=== PATIENT | female | born 1950 | race Caucasian/White ===

== ENCOUNTER 2019-07-05 08:00 | Outpatient (CLI) | payer MEDICARE, OTHER ==
[2014-01-06 01:39] VITALS: BMI 35.5
[~2019-07-05 08:00] MED LIST: ACCUNEB0.63 MG/3 INH; ADVAIR 500/501 DISK INH; DIOVAN160 MG PO; DOXYCYCLINE HY100 M2 PO; GLUCOPHAGE850 MG PO; K-DUR20 MEQ PO; LASIX20 MG PO; LEVOTHROID75 MCG; MIRALAX17 GM PO; MOTRIN800 MG PO; SINGULAIR10 MG PO; STERAPRED DS 1210 MG; SYNTHROID50 MCG PO; TUDORZA PRESS400 MCG IH; VANCOCIN HCL250 MG PO; ZITHROMAX TRI-500 MG PO; [UNRECOGNIZED DRUG - OTHER] OR
== END 2019-07-05 23:59 | disposition home or self-care (01) ==
LOC: D.MAMMO 08:00
PROVIDERS: ATTEND Clinical Nurse Specialist Adult Health
DX: Z12.31 Encounter for screening mammogram for malignant neoplasm of breast (principal)

== ENCOUNTER 2020-04-19 15:31 | Inpatient (IN) | payer MEDICARE, OTHER ==
[2020-04-19] VITALS (20 sets, daily range): BP systolic 66–139; BP diastolic 43–91; BMI 33.1
[~2020-04-19] VITALS: Ht 172.7 cm; Wt 94.7 kg
--- NOTE | 2020-04-19 16:07 | NUR ---
PT STATES SHE WAS TESTED FOR COVID 2 DAYS AGO, RESULTS TODAY WERE NEGATIVE
[2020-04-19 16:27] LABS: BASOPHILS 0.2 % (0-2); HEMATOCRIT 47.7 % (36.0-48.0); HEMOGLOBIN 14.2 g/dL (12-16); IMMATURE GRANULOCYTES 0.2 % (0-5); LYMPHOCYTES 10.7 % (15-50); MCHC 29.8 g/dL (31.0-37.0); MCV 94.1 fL (80.0-100.0); MONOCYTES 7.8 % (2-11); NEUTROPHILS 79.1 % (40-80); PLATELET COUNT 175 10x3/uL (130-400); RBC 5.07 10x6/uL (4.00-5.40); RDW 15.4 % (11.5-14.5); WBC 8.5 10x3/uL (4.8-10.8)
[2020-04-19 16:39] LABS: APTT 27.7 SECONDS (22.8-39.4); INR 1.1 (0.85-1.17); PROTIME 14.1 SECONDS (11.6-15.0)
[2020-04-19 16:40] LABS: D-DIMER-QUANTITATIVE 1.3 ug/mLFEU (0.20-0.54)
[2020-04-19 16:44] LABS: ANION GAP 7.1 mmol/L (8-16); CALCIUM 7.7 mg/dL (8.5-10.1); CARBON DIOXIDE 39.2 mmol/L (21.0-32.0); CREATININE - SERUM 1.5 mg/dL (0.6-1.3); POTASSIUM - SERUM 4.3 mmol/L (3.5-5.1)
[2020-04-19 16:57] LABS: ALBUMIN 2.7 g/dL (3.4-5.0); BILIRUBIN - TOTAL 0.6 mg/dL (0.2-1.3); PROTEIN - SERUM 5.7 g/dL (6.4-8.2); TROPONIN-I 0.016 ng/mL (0.000-0.060)
[2020-04-19 17:23] LABS: C-REACTIVE PROTEIN 11.2 mg/dL (0.0-0.9)
[2020-04-20] VITALS (82 sets, daily range): BP systolic 88–168; BP diastolic 55–96; BMI 33.1
[2020-04-20 05:19] LABS: BASOPHILS 0.1 % (0-2); EOSINOPHILS 0.1 % (0-7); HEMATOCRIT 49.9 % (36.0-48.0); IMMATURE GRANULOCYTES 0.3 % (0-5); LYMPHOCYTES 4.6 % (15-50); MCH 28.4 pg (26.0-34.0); MCHC 30.1 g/dL (31.0-37.0); MCV 94.3 fL (80.0-100.0); MEAN PLATELET VOLUME 10.2 fL (7.4-10.4); MONOCYTES 2.4 % (2-11); NEUTROPHILS 92.5 % (40-80); PLATELET COUNT 179 10x3/uL (130-400); RBC 5.29 10x6/uL (4.00-5.40); RDW 15.5 % (11.5-14.5); WBC 7.9 10x3/uL (4.8-10.8)
[2020-04-20 05:27] LABS: BILIRUBIN NEGATIVE (NEGATIVE); GLUCOSE NEGATIVE (NEGATIVE); KETONE NEGATIVE (NEGATIVE); NITRITE NEGATIVE (NEGATIVE); UROBILINOGEN NORMAL (NORMAL)
[2020-04-20 05:41] LABS: ANION GAP 3.4 mmol/L (8-16); CALCIUM 8.6 mg/dL (8.5-10.1); CARBON DIOXIDE 39.4 mmol/L (21.0-32.0); MAGNESIUM - SERUM 1.6 mg/dL (1.8-2.4); PHOSPHOROUS 5.3 mg/dL (2.5-4.9); POTASSIUM - SERUM 4.8 mmol/L (3.5-5.1)
--- NOTE | 2020-04-20 06:57 | NUR ---
1914-PATIENT ARRIVED VIA ER STRETCHER. O2 AT 7L VIA HIGH FLOW NC. A/O X 4. SOB. ADMISSION COMPLETED. CALL LIGHT WITHIN REACH. 2134-PAGED DR. SHOEMAKER OF [facility]. 2144- SPOKE WITH DR. SHOEMAKER. NEW ORDER FOR BIPAP. 2299-REASSESSMENT COMPLETED. NO CHANGES 0100- BIPAP CONT TO BE ON. VSS. 0300-REASSESSMENT, NO CHANGES 0500- BIPAP CONT. NO CHANGES. VSS
--- NOTE | 2020-04-20 15:30 | NUR ---
0700 REPORT RECIEVED AND CARE ASSUMED OF PATIENT.. SEE FLOW SHEET FOR SHIFT ASSESMENT FINDINGS.. PT IS ON BIPAP O2 AT THIS TIME.. 0800 MEDS GIVEN AND O2 CHANGED TO NASAL CANNULA HI FLOW.. DRINKING AND SWALLOWING WITHOUT PROBLEM..PT IS SPEAKING TO HER SON ON HER CELL PHONME.. 0830 BACK ON BIPAP 0930 APPEARS TO BE SLEEPING.. 1145 DR SHOEMAKER IN TO SEE PATIENT.. PUPDATE IS GIVEN.. 1200 BS IS 163 INSULIN COVER SIPS H2O GIVEN.. 1200 DR MURILLO IN TO SEE PATIENT.. 1300 GIFT SHOP MANAGER IN TO DO ECHO.. 1400 DOPPLER TECH CALLED AND STATED THEY WERE GOING TO HOLD THE DOPPLER UNTIL COVID NEGATINVE 1500 LAB HAS CALLED AND COVID IS NEGATIVE DOPPLER TECH CALLED AND MESSAGE LEFT..
--- NOTE | 2020-04-20 18:32 | NUR ---
0700 REPORT RECIEVED AND CARE ASSUMED OF PATIENT.. SEE FLOW SHEET FOR SHIFT ASSESMENT..BIPAP ON 0800 MEDS GIVEN AND PT PLACDED ON NC HI FLOW O2 0830 PLACD BACK ON BIPAP.. 1140 DR SHOEMAKER IN TO SEE PATIENT.. UPDATE GIVEN... 1200 BS [address] MURILLO IN TO SEE PATIENT.. 1330 ECHO DONE DOPPLER ON HOLD PER TECH UNTIL PUI NEGATIVE 1500 PUI NEGATIVE.. 1530 DOPPLER TECH CALLED MESSAGE LEFT THAT PUI NEGATIVE.. 1630 BS DONE .. PLACED ON HI FLOW CANNULA 1700 DIET SERVED FEEDING SELF..
[2020-04-21] VITALS (24 sets, daily range): BP systolic 107–140; BP diastolic 66–105
[2020-04-21 03:50] LABS: BASOPHILS 0 % (0-2); EOSINOPHILS 0.1 % (0-7); HEMATOCRIT 46.1 % (36.0-48.0); HEMOGLOBIN 13.6 g/dL (12-16); IMMATURE GRANULOCYTES 0.1 % (0-5); LYMPHOCYTES 5.2 % (15-50); MCH 27.9 pg (26.0-34.0); MCHC 29.5 g/dL (31.0-37.0); MCV 94.5 fL (80.0-100.0); MEAN PLATELET VOLUME 9.8 fL (7.4-10.4); MONOCYTES 5.8 % (2-11); NEUTROPHILS 88.8 % (40-80); PLATELET COUNT 203 10x3/uL (130-400); RBC 4.88 10x6/uL (4.00-5.40); RDW 15.4 % (11.5-14.5); WBC 8.9 10x3/uL (4.8-10.8)
[2020-04-21 04:00] LABS: CALC OSMOLALITY 284 mosm/kg (275-300); CALCIUM 8.9 mg/dL (8.5-10.1); CHLORIDE - SERUM 98 mmol/L (98-107); CREATININE - SERUM 0.8 mg/dL (0.6-1.3); GLUCOSE 194 mg/dL (74-106); MAGNESIUM - SERUM 1.5 mg/dL (1.8-2.4); POTASSIUM - SERUM 4.5 mmol/L (3.5-5.1); SODIUM 139 mmol/L (136-145); UREA NITROGEN 18 mg/dL (7-18); VANCOMYCIN - TROUGH 12.1 ug/mL (10.0-20.0); eGFR NON AFRICAN AMERICAN 75 mL/min (90-120)
[2020-04-21 04:06] LABS: PHOSPHOROUS 3.4 mg/dL (2.5-4.9)
[2020-04-21 04:07] LABS: CARBON DIOXIDE 41.7 mmol/L (21.0-32.0)
--- NOTE | 2020-04-21 06:08 | NUR ---
1900-ASSESSMENT COMPLETED. NC HIGH FLOW AT 7 L 2100-TOLERATED MEDS WITHOUT DIFFICULTY 2200-BIPAP PLACED ON. 2300-REASSMENT COMPLETED. NO CHANGES 0100-NO CHANGES. BIPAP STILL ON. 0300-REASSESSMENT COMPLETED. 0405- CRITICAL LAB OF [facility] 41.7 CALLED FROM LAB. IMPROVED FROM YESTERDAY. 0500-MAG BEING REPLACED.
--- NOTE | 2020-04-21 14:15 | NUR ---
0700 REPORT RECIEVED AND CARE ASSUMED OF PATIENT.. SEE FLOW SHEET FOR SHIFT ASSESMENT FINDINGS.. O2 VIA BIPAP 0800 BREAKFAST SERVED.. O2 CHANGED TO NASAL CANNULA 0900 BACK ON BIPAP O2 AFTER EATING BREAKFAST AND TAKING MEDS.. SAT DROPS SIGNIFICANTY 1100 DR SHOEMAKER IN TO SEE PATIENT.. UPDATE IS GIVEN.. 1145 DR MURILLO IN TO SEE PATIEN.. 1200 BACK ON NASAL CANNULA O2 , LUNCH SERVED AND MEDS GIVEN.. PT SITTING ON SIDE OF BED.. FEEDING SELF LUNCH 1245 BACK ON BIPAP O2 1400 APPEARS SLEEPING.. 1420 CONTINUES TO SLEEP
--- NOTE | 2020-04-21 18:50 | NUR ---
1829 PIV DISLODGED RIGHT FOREARM... RESITED AND FLUID RESUMED INTO UPPER RIGHT FOREARM X 1 ATTEMPT..PT TOLERATED WELL
--- NOTE | 2020-04-21 20:29 | NUR ---
ATTEMPTED TO CALL DARLENE, SON FOR UPDATE. DID NOT ANSWER. VOICEMAIL WAS BUSINESS ONE SO DID NOT LEAVE VOICEMAIL.
[2020-04-22] VITALS (19 sets, daily range): BP systolic 112–162; BP diastolic 60–106
[2020-04-22 05:36] LABS: BASOPHILS 0.1 % (0-2); EOSINOPHILS 0.1 % (0-7); HEMATOCRIT 45.9 % (36.0-48.0); HEMOGLOBIN 13.7 g/dL (12-16); IMMATURE GRANULOCYTES 0.2 % (0-5); LYMPHOCYTES 5.9 % (15-50); MCH 27.9 pg (26.0-34.0); MCHC 29.8 g/dL (31.0-37.0); MCV 93.5 fL (80.0-100.0); MONOCYTES 7.4 % (2-11); NEUTROPHILS 86.3 % (40-80); PLATELET COUNT 188 10x3/uL (130-400); RBC 4.91 10x6/uL (4.00-5.40); RDW 15.2 % (11.5-14.5); WBC 10.6 10x3/uL (4.8-10.8)
[2020-04-22 06:03] LABS: CALC OSMOLALITY 283 mosm/kg (275-300); CHLORIDE - SERUM 98 mmol/L (98-107); CREATININE - SERUM 0.7 mg/dL (0.6-1.3); GLUCOSE 180 mg/dL (74-106); MAGNESIUM - SERUM 1.6 mg/dL (1.8-2.4); PHOSPHOROUS 3.5 mg/dL (2.5-4.9); POTASSIUM - SERUM 4.4 mmol/L (3.5-5.1); SODIUM 138 mmol/L (136-145); UREA NITROGEN 21 mg/dL (7-18); eGFR NON AFRICAN AMERICAN 88 mL/min (90-120)
[2020-04-22 06:06] LABS: CARBON DIOXIDE 40.4 mmol/L (21.0-32.0)
--- NOTE | 2020-04-22 06:22 | NUR ---
1900-ASSESSMENT COMPLETED. BREATHING 90% ON 7L HIGH FLOW NC. DENIES ANY NEEDS 2100-VSS. WATCHING TV. 2200- BIPAP PLACED ON PT 2300- REASSESSMENT COMPLETED. NO CHANGES. 0100- EYES CLOSED. EASILY WAKES TO VOICE 0300-REASSESSMENT COMPLETED. 0500-WATCHING TV. WANTS BIPAP OFF. PULSE OX ON BIPAP IS 89-91%.
--- NOTE | 2020-04-22 07:20 | NUR ---
PT A&O X3, DENIES NEEDS, BED LOWEST POSITION, SITTING ON BEDSIDE, BREATHING SHALLOW, CALL LIGHTIN REACH, NO S/S OF DISTRESS NOTED
--- NOTE | 2020-04-22 10:00 | NUR ---
PT MOVED FROM 2314 TO 2303
--- NOTE | 2020-04-22 10:57 | NUR ---
Nutrition follow-up: Pt with BIPAP in place Diet: ADA with po intake 100% of dinner meal Labs reviewed Wt: 223# PO intake good at this time RDN following.
--- NOTE | 2020-04-22 11:20 | NUR ---
SITTING UP IN BED, RESPIRATORY PLACING PT BACK ON BIPAP
--- NOTE | 2020-04-22 11:49 | NUR ---
PT SITTING ON BEDSIDE EATING LUNCH, 14L NC HF ON THEN BIPAP BACK ON AFTER EATING
--- NOTE | 2020-04-22 13:47 | EC ---
PATIENT:SEE ARENAS DATE OF SERVICE: 04/19/20 SEX: F MEDICAL RECORD: [id number] DATE OF : 50 LOCATION:[facility] D.230 AGE OF PATIENT: 69 ADMISSION DATE: 04/19/20 REFERRING PHYSICIAN: INTERPRETING PHYSICIAN: SHYAM TALLEY MD ECHOCARDIOGRAM REPORT ECHO CHARGES 4 ECHO COMPLETE Date: 04/20/20 CLINICAL DIAGNOSIS: DYSPNEA/HYPOTENSION/EDEMA/ ELEVATED PRO-BNP ECHOCARDIOGRAPHIC MEASUREMENTS (adult normal given) AC root (d.<3.7cm) 3.3 cm LV Septum d (<1.2 cm> 1.7 cm Valve Excursion 2.0 cm LV Septum (systole) 2.2 cm Left Atria (s.<4.0cm> 4.0 cm LVPW d(<1.2cm) 1.3 cm RV (d.<2.3cm) 4.0 cm LVPW (sytole) 2.3 cm LV diastole(<5.6CM) 5.0 cm MV E-F(>70mm/sec) cm LV systole 2.7 cm LVOT Diameter 1.7 cm MV exc.(>10mm) cm Est.ejection fraction (50-75%) % DOPPLER: LVIT cm/sec A 113 cm/sec E 78.0 cm/sec LA cm/sec RVSP 45.4 mmHg LVOT 112 cm/sec AOP1/2T m/s Asc. Ao 188 cm/sec RVOT 79.0 cm/sec RA cm/sec PA 105 cm/sec AV Gradient Peak 14.1 mmHg AV Mean 7.7 mmHg AV Area 1.3 cm MV Gradient Peak 4.2 mmHg MV Mean 1.2 mmHg MV Area cm COMMENTS: [employer]obile [employer] Property Underwriter: 1 ERIC WANOE Hammer Setter: 3 Dr. Harper TAPE# PACS Pericardial Effusion Y DATE OF SERVICE: Adequate 2D, color flow imaging, spectral Doppler, and M-Mode. LVH is present. LV internal dimensions are normal. LV appears to be mildly globally hypo with LV function lower limits of normal to mildly reduced at 45% to 50%. Aortic valve is tricuspid. No evidence of stenosis by Doppler interrogation. Left atrium is normal 4.0 cm. Mitral valve shows no prolapse. Trace MR. Right-sided chambers are grossly normal. Mild TR. ECHOCARDIOGRAM REPORT [id number] SEE ARENAS TRANSINT:[id number] Voice Confirmation ID: [id number] DOCUMENT ID: [id number] SHYAM TALLEY MD at 1347 CC: [id number] DICTATION DATE: 04/21/20 1148 SENIOR SALES OPERATIONS MANAGER: 04/21/20 2146 ADM IN [facility] [address] [place] [address]
--- NOTE | 2020-04-22 16:00 | NUR ---
ASSUMED CARE FOR THIS PT. PT IS A&O SITTING UP IN BED WITH HER BIPAP ON. PT STATES SHE IS FEELING GOOD AND DENIES ANY CURRENT PAIN OR NEEDS AT THIS TIME. PARRA DRAINING TO GRAVITY OFF R.SIDE OF BED. CL IN REACH, BED IN LOWEST, SIDE RAILS X2. WILL CTM.
--- NOTE | 2020-04-22 18:49 | NUR ---
NO RESPIRATORY CULTURE OBTAINED NO SPECIMEN PROVIDED. PT SAT UP ON EDGE OF BED AND TOLERATED 100% OF HER DINNER. ASSISTED PT BACK INTO BED AND SHE IS RESTING QUIETLY WITH HIFLOW NC @14L. PT STATES SHE FEELS LIKE SHE IS BREATHING EASIER THAN EARLIER TODAY. PT DENIES ANY CURRENT PAIN OR NEEDS AT THIS TIME. CL IN REACH, BED IN LOWEST, SIDE RAILS X2. WILL CTM.
--- NOTE | 2020-04-22 19:20 | NUR ---
ASSESSMENT PER FLOW SHEET, VS CONTINUE, IV IN RIGHT FA INTACT WITH NO REDNESS OR EDEMA INFUSING VIA PUMP NS AT 100 ML/HR, VANCOMYCIN INFUSING IVPB PER MD ORDERS, SEE EMAR, PT REPORTS FLATUS, AND NO BM, PARRA CATH INTACT DRAINING DARK YELLOW URINE, PT ON 14L O2 VIA NC, PT REPORTS PRODUCTIVE COUGH, PT DENIES PAIN AT THIS TIME, REQUESTED AND SERVED FRESH H20, DINNER TRAY REMOVED
--- NOTE | 2020-04-22 20:24 | NUR ---
PT WATCHING TV, OBTAINED FSBS
--- NOTE | 2020-04-22 20:50 | NUR ---
PHARMACY NOTIFIED FOR INSULIN
--- NOTE | 2020-04-22 21:31 | NUR ---
PT ON BIPAP AT THIS TIME, REMOVED, PT PLACED BACK ON O2 VIA NC, ADM 2100 MEDS WITH APPLESAUCE, ADM INSULIN TO RIGHT ARM, SNACK PROVIDED, PT REQUESTS RESP TREATMENT, RESP NOTIFIED, INFORMED PT THAT HE WILL BE IN SOON HE IS FINISHED UP WITH ANOTHER PT, PT VERBALIZES UNDERSTANDING, PT DENIES FURTHER NEEDS OR PAIN
--- NOTE | 2020-04-22 22:22 | NUR ---
PT WATCHING TV, BIPAP ON, PT DENIES NEEDS OR PAIN AT THIS TIME, BED IN LOW POSITION, SIDE RAILS X 2, CALL LIGHT IN REACH
[2020-04-23] VITALS (25 sets, daily range): BP systolic 142–168; BP diastolic 81–119
--- NOTE | 2020-04-23 00:37 | NUR ---
PT RESTING WITH EYES CLOSED, AROUSES TO SOFT VERBAL STIMULATION, VS CONTINUE, OBTAINED TEMP AND FSBS, SEE FLOW SHEET, NEW BAG OF NS AND MERREM HUNG IVPB PER MD ORDERS, SEE EMAR, PARRA CARE DONE, PT DENIES NEEDS OR PAIN AT THIS TIME
--- NOTE | 2020-04-23 01:49 | NUR ---
PT SITTING UP ON SIDE OF BED, BIPAP OFF AT THIS TIME, PT BACK ON NC, BP CUFF SLID DOWN ARM, READJUSTED, PT REQUESTED AND SERVED FRESH H20 AND SHARITA CRACKERS, DENIES FURTHER NEEDS
--- NOTE | 2020-04-23 02:37 | NUR ---
PT DOING RESP TREATMENT, BP CUFF SLID DOWN AGAIN, READJUSTED AND OBTAINED BP, BP 156/90, PT STATES "THAT'S GOOD FOR ME, IT'S USUALLY HIGHER THAN THAT", PT DENIES NEEDS OR PAIN AT THIS TIME
--- NOTE | 2020-04-23 04:13 | NUR ---
PT RESTING WITH EYES CLOSED, AROUSES TO SOFT VERBAL STIMULATION, LAB IN ROOM FOR AM BLOOD DRAW, OBTAINED FSBS
--- NOTE | 2020-04-23 04:34 | NUR ---
ADM INSULIN PER MD ORDERS, SEE EMAR, I&O'S COLLECTED, TEMP OBTAINED, VD CONTINUE, PT DENIES NEEDS OR PAIN AT THIS TIME
[2020-04-23 05:24] LABS: BASOPHILS 0.1 % (0-2); EOSINOPHILS 0 % (0-7); HEMATOCRIT 46.8 % (36.0-48.0); HEMOGLOBIN 13.9 g/dL (12-16); IMMATURE GRANULOCYTES 0.2 % (0-5); LYMPHOCYTES 6.6 % (15-50); MCH 27.5 pg (26.0-34.0); MCHC 29.7 g/dL (31.0-37.0); MCV 92.7 fL (80.0-100.0); MEAN PLATELET VOLUME 9.7 fL (7.4-10.4); MONOCYTES 10.1 % (2-11); PLATELET COUNT 195 10x3/uL (130-400); RBC 5.05 10x6/uL (4.00-5.40); RDW 15.1 % (11.5-14.5); WBC 10.5 10x3/uL (4.8-10.8)
[2020-04-23 05:40] LABS: CALC OSMOLALITY 280 mosm/kg (275-300); CALCIUM 8.8 mg/dL (8.5-10.1); CARBON DIOXIDE 38.8 mmol/L (21.0-32.0); CHLORIDE - SERUM 96 mmol/L (98-107); CREATININE - SERUM 0.8 mg/dL (0.6-1.3); GLUCOSE 194 mg/dL (74-106); MAGNESIUM - SERUM 1.6 mg/dL (1.8-2.4); PHOSPHOROUS 3.4 mg/dL (2.5-4.9); POTASSIUM - SERUM 4.2 mmol/L (3.5-5.1); SODIUM 137 mmol/L (136-145); UREA NITROGEN 17 mg/dL (7-18); VANCOMYCIN - TROUGH 16.1 ug/mL (10.0-20.0); eGFR NON AFRICAN AMERICAN 75 mL/min (90-120)
--- NOTE | 2020-04-23 06:11 | NUR ---
ADM SOLUMEDROL SIVP AND HUNG VANCOMYCIN IVPB PER MD ORDERS, SEE EMAR, PT REQUESTS TO TAKE MAGOX WITH BREAKFAST, PT REQUESTED AND PROVIDED WARM WASH CLOTH, DENIES FURTHER NEEDS
--- NOTE | 2020-04-23 09:00 | NUR ---
SITTING UP ON SIDE OF BED EATING BREAKFAST.
--- NOTE | 2020-04-23 11:00 | NUR ---
ON BIPAP VOICES NO CO AT TIME.
--- NOTE | 2020-04-23 15:00 | NUR ---
SLEEPING NO DISTRESS NOTED. O2 SAT 90 PERCENT ON 14 LITERS.
--- NOTE | 2020-04-23 17:30 | NUR ---
SITTING UP ON SIDE OF BED EATING SUPPER. VOICES NO CO AT TIME. O2 SAT 90 PERCENT.
--- NOTE | 2020-04-23 19:00 | NUR ---
BEDSIDE REPORT RECEIVED. SHIFT ASSESSMENT COMPLETED PER FLOWSHEET, SEE FLOWSHEET FOR INFORMATION. NO ACUTE NEEDS OR DISTRESS NOTED AT THIS TIME. VSS. WILL CONT TO MONITOR.
--- NOTE | 2020-04-23 21:00 | NUR ---
NO ACUTE NEEDS OR DISTRESS NOTED AT THIS TIME. WILL CONT TO MONITOR.
--- NOTE | 2020-04-23 22:04 | MORECARE ---
CASE MANAGEMENT DISCHARGE SUMMARY PATIENT: SEE ARENAS UNIT: [id number] ADM DATE: 04/19/20 AGE: 69 : 50 SEX: F ROOM/BED: D.2303 AUTHOR: JABIER PAYNE PHYSICIAN: REFERRING PHYSICIAN: QUINTIN WERNER MD DATE OF SERVICE: 04/23/20 Discharge Plan Patient Name: SEE ARENAS [facility] [facility] 1950 Planned Disposition: Anticipated Discharge Date: Discharge Date: Expected LOS: Initial Reviewer: [email or web address] Initial Review Date: 04/19/2020 Generated: 04/23/20 11:03 pm DCPIA - Discharge Planning Initial Assessment Updated by [email or web address]: Moni Martinez on 04/23/20 10:02 pm * Is the patient Alert and Oriented? Yes * How many steps to enter\exit or inside your home? * PCP Aditi * Pharmacy [facility] * Preadmission Environment Home Alone * ADLs Independent * Other Equipment HOME/PORTABLE 02, NEBULIZER, W/C, WALK IN SHOWER, ? WALKER, * List name and contact numbers for known caregivers / representatives who currently or will assist patient after discharge: BERNA ARENAS - SON - [phone] * Verbal permission to speak to the caregivers and representatives has been obtained from the patient. Yes * Community resources currently utilized None * Additional services required to return to the preadmission environment? No * Can the patient safely return to the preadmission environment? Yes * Has this patient been hospitalized within the prior 30 days at any hospital? No Patient Name: SEE ARENSA Page [id number] at 2204 All edits/amendments must be made on the electronic document DICTATION DATE: 04/23/202202 FERMENTATION OPERATOR: TONA 04/23/202202 RPT#: [id number] DC DATE: STATUS: ADM IN [facility] [address] [place] [address] END OF REPORT
--- NOTE | 2020-04-23 22:10 | MORECARE ---
CASE MANAGEMENT DISCHARGE SUMMARY PATIENT: SEE ARENAS UNIT: [id number] ADM DATE: 04/19/20 AGE: 69 : 50 SEX: F ROOM/BED: D.2303 AUTHOR: KERRY,DOC PHYSICIAN: REFERRING PHYSICIAN: QUINTIN WERNER MD DATE OF SERVICE: 04/23/20 Discharge Plan Patient Name: SEE ARENAS Facility: [facility]:[place] : 1950 Planned Disposition: Anticipated Discharge Date: Discharge Date: Expected LOS: Initial Reviewer: [email or web address] Initial Review Date: 04/19/2020 Generated: 04/23/20 11:10 pm DCP- Discharge Planning Updated by [email or web address]: Moni Martinez on 04/23/20 9:[address] Patient Name: SEE ARENAS Admission Status: ER Accout number: [id number] Admission Date: 04-19-2020 : 1950 Admission Diagnosis:SEPSIS, UNSPECIFIED ORGANISM Attending: QUINTIN WERNER Current LOS: 4 Anticipated DC Date: Planned Disposition: Primary Insurance: MEDICARE A & B Discharge Planning Comments: CM met with patient to complete initial dc planning assessment. CM educated patient on the CM role and verbal consent given by patient to complete assessment. Patient lives at home alone. Patient is independent. At discharge patient plans to return home and feels this is a safe discharge. CM discussed availability of home health, rehab services, and medical equipment. Patient stated that she may need BiPAP when discharged. Patient does currently have home/ portable 02 but doesn't know which provider. Patient will have family to transport home. CM will continue to follow and will assist as needed with dc plans/needs. Electrocardiograph Repairer: Moni Martinez DCPIA - Discharge Planning Initial Assessment Updated by [email or web address]: Moni Martinez on 04/23/20 10:02 pm * Is the patient Alert and Oriented? Yes * How many steps to enter\exit or inside your home? * PCP Aditi * Pharmacy [facility] * Preadmission Environment Home Alone * ADLs Independent * Other Equipment HOME/PORTABLE 02, NEBULIZER, W/C, WALK IN SHOWER, ? WALKER, * List name and contact numbers for known caregivers / representatives who currently or will assist patient after discharge: BERNA ARENAS - MARC - [phone] * Verbal permission to speak to the caregivers and representatives has been obtained from the patient. Yes * Community resources currently utilized None * Additional services required to return to the preadmission environment? No * Can the patient safely return to the preadmission environment? Yes * Has this patient been hospitalized within the prior 30 days at any hospital? No Last DP export: 04/23/20 9:04 pm Patient Name: SEE ARENAS Page [phone] at 2210 All edits/amendments must be made on the electronic document DICTATION DATE: 04/23/202209 PRINCIPAL CLERK: TONA 04/23/202209 RPT#: [id number] DC DATE: STATUS: ADM IN [facility] [address] [place] [address] END OF REPORT
--- NOTE | 2020-04-23 23:00 | NUR ---
REASSESSMENT COMPLETED PER FLOWSHEET, SEE FLOWSHEET FOR INFORMATION. PT RESTING IN BED WITH EYES CLOSED. BIPAP ON 70%. WILL CONT TO MONITOR.
[2020-04-24] VITALS (22 sets, daily range): BP systolic 131–174; BP diastolic 72–114
--- NOTE | 2020-04-24 01:00 | NUR ---
PT RESTING IN BED, ANSWERED CALL LIGHT. PT REQUEST TO TAKE BIPAP OFF FOR "A SPLIT SECOND SO I CAN GET A DRINK OF WATER" BIPAP TAKEN OFF TO GET A DRINK OF WATER PER REQUEST. PT SAT DROPPED DOWN TO 88%. SOON BIPAP WAS SECURED SAT INCREASED TO 90%. VSS. WILL CONT TO MONITOR.
--- NOTE | 2020-04-24 03:00 | NUR ---
REASSESSMENT COMPLETED PER FLOWSHEET, SEE FLOWSHEET FOR INFORMATION. PT RESTING IN BED WITH EYES CLOSED. NO ACUTE NEEDS OR DISTRESS NOTED AT THIS TIME. VSS. WILL CONT TO MONITOR.
--- NOTE | 2020-04-24 05:00 | NUR ---
CHG BEDBATH GIVEN. PT DENIES ANY ACUTE NEEDS OR DISTRESS AT THIS TIME. VSS. WILL CONT TO MONITOR.
[2020-04-24 06:41] LABS: BASOPHILS 0.1 % (0-2); EOSINOPHILS 0 % (0-7); HEMATOCRIT 47.3 % (36.0-48.0); HEMOGLOBIN 13.9 g/dL (12-16); IMMATURE GRANULOCYTES 0.3 % (0-5); LYMPHOCYTES 6.3 % (15-50); MCH 27.4 pg (26.0-34.0); MCHC 29.4 g/dL (31.0-37.0); MCV 93.1 fL (80.0-100.0); MEAN PLATELET VOLUME 9.8 fL (7.4-10.4); MONOCYTES 8.4 % (2-11); NEUTROPHILS 84.9 % (40-80); PLATELET COUNT 211 10x3/uL (130-400); RBC 5.08 10x6/uL (4.00-5.40); WBC 11.2 10x3/uL (4.8-10.8)
[2020-04-24 07:03] LABS: CALC OSMOLALITY 280 mosm/kg (275-300); CALCIUM 8.9 mg/dL (8.5-10.1); CARBON DIOXIDE 39.2 mmol/L (21.0-32.0); CHLORIDE - SERUM 98 mmol/L (98-107); CREATININE - SERUM 0.6 mg/dL (0.6-1.3); GLUCOSE 177 mg/dL (74-106); MAGNESIUM - SERUM 1.5 mg/dL (1.8-2.4); PHOSPHOROUS 3.4 mg/dL (2.5-4.9); POTASSIUM - SERUM 4.1 mmol/L (3.5-5.1); SODIUM 138 mmol/L (136-145); UREA NITROGEN 15 mg/dL (7-18); eGFR NON AFRICAN AMERICAN > 90 mL/min (90-120)
--- NOTE | 2020-04-24 08:00 | NUR ---
Nutrition follow-up: RDN visited with pt at breakfast 04/23; pt reports good appetite and ate 100% of breakfast meal. RDN helped pt fill out menus and honor pts food preferences within diet restrictions. Diet: ADA consistent CHO PO intake 75-100% of most meals BIPAP in use when not eating. Pt has had diabetes diet education in the past. Pt reports checking glucose at home. Will provide diabetic diet information. RDN following.
--- NOTE | 2020-04-24 19:00 | NUR ---
ASSESSEMENT COMPLETED. SEE FLOWSHEET FOR ALL FINDINGS. PT A/O X4, DENIES ANY DISCOMFORT AT THIS TIME. DESATURATION NOTED WHEN PT MOVES OR TALK. ENCOUREGED TO TAKE SBB. O2SAT 93% VIA AIRVO. HOB UP. SIDE RAILS UP X2. CALL LIGHT IN REACH. CONT TO MONITOR.
--- NOTE | 2020-04-24 21:00 | NUR ---
PT SCHEDULED MEDS GIVEN WITHOUT DIFFIC. PT CHAD WELL. REPOSITIONED SELF IN BED FOR COMFORT. HOB UP. SIDE RAILS UP. CALL LIGHT IN REACH. CPOC.
--- NOTE | 2020-04-24 23:00 | NUR ---
REASSESSMENT COMPELTED. SEE FLOWSHEETS FOR ALL FINDINGS. PT CHANGED TO BIPAP PER RT. NO ACUTE SIGNS OF DISTRESS NOTED. VSS. CPOC.
[2020-04-25] VITALS (22 sets, daily range): BP systolic 125–176; BP diastolic 55–101
--- NOTE | 2020-04-25 03:00 | NUR ---
REASSESSMENT COMPLETED PER FLOWSHEET. PT AWAKE AND REQUESTED TO TAKE THE BIPAP OFF FOR A BREAK. SWITCHED WITH VAPOTHERM FOR NEW. DESATURATION NOTED VERY EASILY. TAKES A AWALE TO RECOVER WITH ACTIVITY O2SAT AT 91%. CALL LIGHT IN REACH. CONT TO MONITOR.
[2020-04-25 03:50] LABS: BASOPHILS 0 % (0-2); EOSINOPHILS 0 % (0-7); HEMATOCRIT 49.1 % (36.0-48.0); HEMOGLOBIN 14.6 g/dL (12-16); IMMATURE GRANULOCYTES 0.5 % (0-5); LYMPHOCYTES 7.6 % (15-50); MCH 27.8 pg (26.0-34.0); MCHC 29.7 g/dL (31.0-37.0); MCV 93.5 fL (80.0-100.0); MEAN PLATELET VOLUME 9.9 fL (7.4-10.4); MONOCYTES 5.8 % (2-11); NEUTROPHILS 86.1 % (40-80); PLATELET COUNT 227 10x3/uL (130-400); RBC 5.25 10x6/uL (4.00-5.40); WBC 12.1 10x3/uL (4.8-10.8)
[2020-04-25 04:12] LABS: CALC OSMOLALITY 280 mosm/kg (275-300); CALCIUM 8.7 mg/dL (8.5-10.1); CHLORIDE - SERUM 96 mmol/L (98-107); CREATININE - SERUM 0.7 mg/dL (0.6-1.3); GLUCOSE 201 mg/dL (74-106); MAGNESIUM - SERUM 1.3 mg/dL (1.8-2.4); PHOSPHOROUS 3.5 mg/dL (2.5-4.9); POTASSIUM - SERUM 4.2 mmol/L (3.5-5.1); SODIUM 137 mmol/L (136-145); UREA NITROGEN 15 mg/dL (7-18); VANCOMYCIN - TROUGH 13.4 ug/mL (10.0-20.0); eGFR NON AFRICAN AMERICAN 88 mL/min (90-120)
--- NOTE | 2020-04-25 05:00 | NUR ---
I&O COMPLETED PER CHART
[2020-04-25 05:02] LABS: CARBON DIOXIDE 41.4 mmol/L (21.0-32.0)
--- NOTE | 2020-04-25 07:19 | NUR ---
SHIFT HAND OFF RECEIVED FROM SERVICE AIDE NURSE. PT AWAKE, DENIES ANY PAIN, ALERT AND ORIENTED. PERSONAL ITEMS WITHIN REACH. NO NEEDS AT THIS TIME.
--- NOTE | 2020-04-25 07:55 | NUR ---
RT @ BEDSIDE AND PLACED PT BACK ON BIPAP.
[2020-04-25 12:10] LABS: IMMUNOGLOBULIN E 50 IU/mL (6-495)
--- NOTE | 2020-04-25 16:17 | NUR ---
PT IV LEAKING, DISCONNECTED IV FLUID TEMPORARILY
--- NOTE | 2020-04-25 19:00 | NUR ---
BEDSIDE REPORT REC'D. ASSSESSMENT COMPLETED. SEE FLOWSHEET FOR ALL FINDINGS. PT A/O X4, DENIES PAIN OR DISCOMFORT AT THIS TIME. CONT ON VAPOTHERM TO KEEP O2SAT >90%. PPP. CALL LIGHT IN REACH. CONT TO MONITOR.
--- NOTE | 2020-04-25 21:00 | NUR ---
SCHEDULED MEDS GIVEN PER ORDER. PT CHAD WELL. CPOC.
--- NOTE | 2020-04-25 23:00 | NUR ---
REASSESSMENT COMPLETED. SEE FLOWSHEET FOR ALL FINDINGS. VSS. NO ACUTE CHANGES NOTED IN PT'S STATUS. CPOC.
[2020-04-26] VITALS (15 sets, daily range): BP systolic 105–173; BP diastolic 54–114
--- NOTE | 2020-04-26 01:00 | NUR ---
PT RESTING QUIETLY ON BIPAP, NO SIGNS OF DISTRESS NOTED. NO NEEDS VOICES. CPOC.
[2020-04-26 09:23] LABS: BASOPHILS 0.1 % (0-2); EOSINOPHILS 0 % (0-7); HEMATOCRIT 49.5 % (36.0-48.0); HEMOGLOBIN 15.2 g/dL (12-16); IMMATURE GRANULOCYTES 0.4 % (0-5); LYMPHOCYTES 4.8 % (15-50); MCHC 30.7 g/dL (31.0-37.0); MEAN PLATELET VOLUME 9.4 fL (7.4-10.4); MONOCYTES 4.5 % (2-11); NEUTROPHILS 90.2 % (40-80); PLATELET COUNT 236 10x3/uL (130-400); RBC 5.42 10x6/uL (4.00-5.40); RDW 14.9 % (11.5-14.5); WBC 13.6 10x3/uL (4.8-10.8)
[2020-04-26 09:24] LABS: MCV 91.3 fL (80.0-100.0)
[2020-04-26 09:41] LABS: ALBUMIN 2.9 g/dL (3.4-5.0); ALKALINE PHOSPHATASE 62 U/L (30-120); ALT (SGPT) 31 U/L (10-68); BILIRUBIN - TOTAL 0.97 mg/dL (0.2-1.3); CALC OSMOLALITY 285 mosm/kg (275-300); CALCIUM 8.4 mg/dL (8.5-10.1); CARBON DIOXIDE 37.9 mmol/L (21.0-32.0); CHLORIDE - SERUM 97 mmol/L (98-107); CREATININE - SERUM 0.7 mg/dL (0.6-1.3); GLUCOSE 237 mg/dL (74-106); MAGNESIUM - SERUM 1.6 mg/dL (1.8-2.4); PHOSPHOROUS 3.3 mg/dL (2.5-4.9); POTASSIUM - SERUM 4.4 mmol/L (3.5-5.1); PROTEIN - SERUM 6.5 g/dL (6.4-8.2); SODIUM 138 mmol/L (136-145); UREA NITROGEN 17 mg/dL (7-18); eGFR NON AFRICAN AMERICAN 88 mL/min (90-120)
--- NOTE | 2020-04-26 10:33 | NUR ---
Nutrition follow-up: Pt remains on BIPAP Pt receiving a consistent CHO diet PO intake 100% of most meals Labs reviewed Wt: 221# PO intake remains good at this time RDN following.
[2020-04-27] VITALS (23 sets, daily range): BP systolic 90–164; BP diastolic 46–96
[2020-04-27 04:48] LABS: BASOPHILS 0.1 % (0-2); EOSINOPHILS 0 % (0-7); HEMATOCRIT 50.9 % (36.0-48.0); HEMOGLOBIN 15.7 g/dL (12-16); IMMATURE GRANULOCYTES 0.8 % (0-5); LYMPHOCYTES 4.6 % (15-50); MCH 28.1 pg (26.0-34.0); MCHC 30.8 g/dL (31.0-37.0); MCV 91.1 fL (80.0-100.0); MEAN PLATELET VOLUME 10.2 fL (7.4-10.4); MONOCYTES 4.7 % (2-11); NEUTROPHILS 89.8 % (40-80); PLATELET COUNT 247 10x3/uL (130-400); RBC 5.59 10x6/uL (4.00-5.40)
[2020-04-27 04:54] LABS: ALBUMIN 2.7 g/dL (3.4-5.0); ALKALINE PHOSPHATASE 65 U/L (30-120); ALT (SGPT) 26 U/L (10-68); BILIRUBIN - TOTAL 1.04 mg/dL (0.2-1.3); CALC OSMOLALITY 287 mosm/kg (275-300); CALCIUM 8.2 mg/dL (8.5-10.1); CARBON DIOXIDE 34.5 mmol/L (21.0-32.0); CHLORIDE - SERUM 101 mmol/L (98-107); CREATININE - SERUM 0.6 mg/dL (0.6-1.3); GLUCOSE 218 mg/dL (74-106); MAGNESIUM - SERUM 1.7 mg/dL (1.8-2.4); PHOSPHOROUS 3.9 mg/dL (2.5-4.9); POTASSIUM - SERUM 4.6 mmol/L (3.5-5.1); PROTEIN - SERUM 6.4 g/dL (6.4-8.2); SODIUM 139 mmol/L (136-145); UREA NITROGEN 21 mg/dL (7-18); VANCOMYCIN - TROUGH 18.3 ug/mL (10.0-20.0); eGFR NON AFRICAN AMERICAN > 90 mL/min (90-120)
--- NOTE | 2020-04-27 20:15 | NUR ---
Rec'd pt awake, alert for initial assessment from off-going nurse. Initial assessment completed and recorded per assessment flow sheet. On vapotherm @ 40% with O2 sat of 90. Will monitor.
[2020-04-28] VITALS (22 sets, daily range): BP systolic 99–182; BP diastolic 57–106
[2020-04-28 03:36] LABS: BASOPHILS 0.1 % (0-2); EOSINOPHILS 0.1 % (0-7); HEMATOCRIT 50.4 % (36.0-48.0); HEMOGLOBIN 15.5 g/dL (12-16); IMMATURE GRANULOCYTES 0.5 % (0-5); LYMPHOCYTES 6.9 % (15-50); MCH 27.8 pg (26.0-34.0); MCHC 30.8 g/dL (31.0-37.0); MCV 90.5 fL (80.0-100.0); MEAN PLATELET VOLUME 9.6 fL (7.4-10.4); MONOCYTES 7.6 % (2-11); NEUTROPHILS 84.8 % (40-80); PLATELET COUNT 270 10x3/uL (130-400); RBC 5.57 10x6/uL (4.00-5.40); RDW 14.9 % (11.5-14.5); WBC 14.4 10x3/uL (4.8-10.8)
[2020-04-28 03:43] LABS: CALC OSMOLALITY 287 mosm/kg (275-300); CALCIUM 8.3 mg/dL (8.5-10.1); CHLORIDE - SERUM 103 mmol/L (98-107); CREATININE - SERUM 0.7 mg/dL (0.6-1.3); GLUCOSE 215 mg/dL (74-106); POTASSIUM - SERUM 4.1 mmol/L (3.5-5.1); SODIUM 140 mmol/L (136-145); UREA NITROGEN 22 mg/dL (7-18); eGFR NON AFRICAN AMERICAN 88 mL/min (90-120)
--- NOTE | 2020-04-28 19:00 | NUR ---
REPORT RECEIVED, PT CARE ASSUMED. INTRODUCED SELF AND WROTE NAME ON BOARD. PT SITTING UP IN BED, WATCHING TV, AAOX4. REQUESTING ICE WATER AND WASHCLOTH, PROVIDED. PARRA CATH DRAINING PER BEDSIDE WITHOUT ISSUE, 1000 ML CLEAR YELLOW URINE EMPTIED. PT DENIES ANY OTHER NEEDS AT THIS TIME. BED IN LOWEST, SRX2, CALL LIGHT WITHIN REACH. WILL CTM.
--- NOTE | 2020-04-28 21:15 | NUR ---
FSBS 227, 8 UNITS INSULIN PER SLIDING SCALE ADMINISTERED SUBCUTANEOUSLY RIGHT ARM. SNACK OFFERED, ACCEPTED. ADMINISTERED PM MEDS, PER ORDER. REQUESTED WATER, PROVIDED. DENIES ANY OTHER NEEDS AT THIS TIME. BED IN LOWEST, SRX2, CALL LIGHT WITHIN REACH. WILL CTM.
[2020-04-29] VITALS (22 sets, daily range): BP systolic 125–182; BP diastolic 68–109
--- NOTE | 2020-04-29 06:46 | NUR ---
Nutrition follow-up: Diet: ADA consistent CHO PO intake 100% of most meals, snacks Labs reviewed; glucose remains high possibly due to steroids Wt: 222# PO intake continues to be good RDN following.
--- NOTE | 2020-04-29 07:15 | NUR ---
PT RESTING QUIETLY IN BED WITH EYES CLOSED. OPENS EYES UPON HEARING STAFF IN ROOM. BIPAP IN PLACE. PT VOICES THIRST, BIPAP PAUSED FOR MOMENT TO ALLOW HYDRATION. PT VOICES AGITATION TOWARDS BIPAP, VOICING WISHES FOR AM BLOOD GASES TO BE DRAWN SO THAT PT COULD EAT. INFORMED PT THAT STAFF WOULD ENQUIRE ABOUT BLOOD GASES. PT VOICES UNDERSTANDING. BIPAP RETURNED TO PT. PT REPORTS BACK PAIN 4/10 AT THIS TIME. IV TO RIGHT WRIST WITH NS @ 100ML/HR INFUSING VIA PUMP. SITE WITHOUT REDNESS OR EDEMA. F/C PATENT TO GRAVITY, DRAINING YELLOW URINE. SCD'S IN PLACE BILATERALLY. DENIES FURTHER NEEDS AT THIS TIME. CL WITHIN REACH. ENCOURAGED TO CALL WITH NEEDS. CONTINUE POC
--- NOTE | 2020-04-29 09:10 | NUR ---
PT PROVIDED HYDRATION AT THIS TIME. ASSISTED WITH TURNING TO LEFT SIDE DUE TO C/O OF BED BEING UNCOMFORTABLE. PT VOICES APPRECIATION OF ASSISTANCE. BIPAP REMAINS IN PLACE. O2 DECREASED FROM 92% TO 88% WHILE DRINKING WATER. PT DENIES FURTHER NEEDS AT THIS TIME. CL WITHIN REACH. ENCOURAGED TO CALL WITH NEEDS.
--- NOTE | 2020-04-29 11:36 | NUR ---
PT REQUESTING LUNCH. DISCUSSED CURRENT OXYGEN SATURATION AND DECREASING RATE WHEN O2 IS OFF PATIENT. STRESSED THE IMPORTANCE OF CONTINUOUS BIPAP AT THIS TIME TO KEEP O2 LEVEL TO WHERE MD WANTS THE LEVEL TO BE. PT VOICES FRUSTRATION, BUT VOICES UNDERSTANDING. PROVIDED HYDRATION AT THIS TIME. DENIES FURTHER NEEDS AT THIS TIME. CL WITHIN REACH.
--- NOTE | 2020-04-29 15:49 | NUR ---
FOAM MATTRESS PLACED TO PT BED AT THIS TIME. PT WAS ABLE TO MAINTAIN O2 SAT OF 92-94% WITH BIPAP IN PLACE.
--- NOTE | 2020-04-29 19:00 | NUR ---
SUPINE IN BED, BIPAP IN USE. A&O X 4, DENIES NEEDS GUADALUPE, CTM.
--- NOTE | 2020-04-29 20:52 | NUR ---
VAPOTHERM IN USE, SPO2 83-88%. ENCOURAGING DEEP BREATHING, SPO2 CAME UP TO 91%. CTM
--- NOTE | 2020-04-29 23:03 | NUR ---
BIPAP REMOVED BRIEFLY FOR SIP OF WATER. SPO2 MAINTAINED ABOUT 90%
[2020-04-30] VITALS (24 sets, daily range): BP systolic 118–166; BP diastolic 72–101
[2020-04-30 04:04] LABS: BASOPHILS 0 % (0-2); EOSINOPHILS 0 % (0-7); HEMATOCRIT 42.7 % (36.0-48.0); HEMOGLOBIN 13.1 g/dL (12-16); IMMATURE GRANULOCYTES 0.6 % (0-5); LYMPHOCYTES 5.4 % (15-50); MCH 27.2 pg (26.0-34.0); MCHC 30.7 g/dL (31.0-37.0); MCV 88.8 fL (80.0-100.0); MEAN PLATELET VOLUME 9.8 fL (7.4-10.4); MONOCYTES 8.3 % (2-11); NEUTROPHILS 85.7 % (40-80); PLATELET COUNT 303 10x3/uL (130-400); RBC 4.81 10x6/uL (4.00-5.40); RDW 14.7 % (11.5-14.5); WBC 17.8 10x3/uL (4.8-10.8)
[2020-04-30 04:17] LABS: CALC OSMOLALITY 285 mosm/kg (275-300); CALCIUM 7.9 mg/dL (8.5-10.1); CARBON DIOXIDE 34.5 mmol/L (21.0-32.0); CHLORIDE - SERUM 99 mmol/L (98-107); CREATININE - SERUM 0.8 mg/dL (0.6-1.3); MAGNESIUM - SERUM 1.5 mg/dL (1.8-2.4); PHOSPHOROUS 3.5 mg/dL (2.5-4.9); POTASSIUM - SERUM 3.9 mmol/L (3.5-5.1); SODIUM 136 mmol/L (136-145); UREA NITROGEN 22 mg/dL (7-18); eGFR NON AFRICAN AMERICAN 75 mL/min (90-120)
[2020-04-30 04:33] LABS: GLUCOSE 290 mg/dL (74-106)
--- NOTE | 2020-04-30 08:18 | NUR ---
BIPAP OFF AND VAPOTHERM INITIATED, SAT 88%, WILL CONTINUE TO MONITOR
--- NOTE | 2020-04-30 12:40 | NUR ---
BACK FROM RADIOLOGY, AAO, RECONNECTED TO ICU MONITORS, VSS, O2 SAT 91%, BIPAP AT 100%
--- NOTE | 2020-04-30 12:47 | NUR ---
PC FROM DR PARKER RE CT, NO PE FOUND, RT LOWER PERITONEAL AREA WITH POSSIBLE BLOOD, HE RECOMMENDS ABD/ PELVIS CT, DR SHOEMAKER ON UNIT, NOTIFIED, TEST ORDERED
--- NOTE | 2020-04-30 14:53 | NUR ---
TO RADIOLOGY VIA BED FOR ABD/PEVIS CT, AAO, BIPAP IN USE
--- NOTE | 2020-04-30 22:32 | NUR ---
GIVEN PATIENT CHG BATH WITH COMPLETE LINEN CHANGE. CHANGE MEPILEX ON BUTTOCK. TOOK OUT PIV TO RIGHT WRIST, TIP INTACT. NO BLEEDING. UNABLE TO FLUSH SALINE. TOOK BIPAP OFF FOR MEDS AND PATIENT ONLY LASTED APPROX 20 MINS BEFORE DESAT TO 80% WITH 100% VAPOTHERM. PUT BIPAP BACK ON.
[2020-05-01] VITALS (37 sets, daily range): BP systolic 59–150; BP diastolic 30–80
[2020-05-01 04:32] LABS: BASOPHILS 0.1 % (0-2); EOSINOPHILS 0.9 % (0-7); HEMATOCRIT 38.4 % (36.0-48.0); HEMOGLOBIN 11.8 g/dL (12-16); IMMATURE GRANULOCYTES 0.6 % (0-5); LYMPHOCYTES 12.5 % (15-50); MCH 27.2 pg (26.0-34.0); MCHC 30.7 g/dL (31.0-37.0); MCV 88.5 fL (80.0-100.0); MEAN PLATELET VOLUME 9.9 fL (7.4-10.4); MONOCYTES 9.6 % (2-11); NEUTROPHILS 76.3 % (40-80); PLATELET COUNT 320 10x3/uL (130-400); RBC 4.34 10x6/uL (4.00-5.40); RDW 14.8 % (11.5-14.5); WBC 18.8 10x3/uL (4.8-10.8)
[2020-05-01 04:47] LABS: CARBON DIOXIDE 38.3 mmol/L (21.0-32.0); CHLORIDE - SERUM 100 mmol/L (98-107); MAGNESIUM - SERUM 1.6 mg/dL (1.8-2.4); PHOSPHOROUS 3.6 mg/dL (2.5-4.9); POTASSIUM - SERUM 3.4 mmol/L (3.5-5.1); SODIUM 141 mmol/L (136-145); UREA NITROGEN 21 mg/dL (7-18)
[2020-05-01 05:03] LABS: CALC OSMOLALITY 285 mosm/kg (275-300); CREATININE - SERUM 0.5 mg/dL (0.6-1.3); GLUCOSE 128 mg/dL (74-106); eGFR NON AFRICAN AMERICAN > 90 mL/min (90-120)
--- NOTE | 2020-05-01 10:41 | NUR ---
Nutrition follow-up: Pt sitting in bed with NC in place Receiving a consistent CHO diet with po intake good. Labs: Glucose under good control at this time Labs reviewed Wt: 211# RDN following.
--- NOTE | 2020-05-01 11:00 | NUR ---
ABG'S DRAWN PER ORDER BY RT
--- NOTE | 2020-05-01 11:20 | NUR ---
PAGED DR SHOEMAKER RE: ABG RESULTS 11:25, PC BACKE FROM DR SHOEMAKER, DECISION MADE THAT PATIENT NEEDS TO BE INTUBATED
--- NOTE | 2020-05-01 11:30 | NUR ---
SPOKE WITH PATIENT RE: BEING INTUBATED, VERY TEARFUL, WANTS TO GO HOME BUT WILL CALL HER SON TO SEE WHAT HE THINKS SHE SHOULD DO 1140 PC TO SON BERNA, EDUCATED RE: OXYGEN NEED AT AND ABG READING, STATED THAT WE SHOULD GIVE HIS MOTHER A CHANCE TO GET BETTER AND THE PATIENT AGREES
--- NOTE | 2020-05-01 12:13 | NUR ---
DR SHOEMAKER CALLED GIVEN UPDATE. ORDER TO CALL ANESTHESIA TO INTUBATE AT THIS TIME. DANIEL AT BEDSIDE GIVEN UPDATE.
--- NOTE | 2020-05-01 12:20 | NUR ---
INTUBATED PER DR SHOEMAKER, BY JIGAR PRESCOTT, 7.5 EET, 22 CM LIP LINE, 100MG SUCC AND 50 FENTANYL GIVEN,BEFORE PRODECURE
--- NOTE | 2020-05-01 14:25 | NUR ---
20 GAUGE IV PLACED TO RIGHT FOREARM.
[2020-05-02] VITALS (25 sets, daily range): BP systolic 90–130; BP diastolic 25–60
[2020-05-02 05:24] LABS: HEMATOCRIT 38.1 % (36.0-48.0); HEMOGLOBIN 10.5 g/dL (12-16); MCH 24.2 pg (26.0-34.0); MCHC 27.6 g/dL (31.0-37.0); MCV 87.8 fL (80.0-100.0); MEAN PLATELET VOLUME 10.6 fL (7.4-10.4); PLATELET COUNT 339 10x3/uL (130-400); RBC 4.34 10x6/uL (4.00-5.40); WBC 27.6 10x3/uL (4.8-10.8)
[2020-05-02 05:26] LABS: CALCIUM 8.8 mg/dL (8.5-10.1); CARBON DIOXIDE 29.8 mmol/L (21.0-32.0); CHLORIDE - SERUM 96 mmol/L (98-107); MAGNESIUM - SERUM 1.8 mg/dL (1.8-2.4); SODIUM 135 mmol/L (136-145)
[2020-05-02 05:27] LABS: CALC OSMOLALITY 285 mosm/kg (275-300); CREATININE - SERUM 0.8 mg/dL (0.6-1.3); GLUCOSE 235 mg/dL (74-106); PHOSPHOROUS 4.9 mg/dL (2.5-4.9); POTASSIUM - SERUM 4.8 mmol/L (3.5-5.1); UREA NITROGEN 34 mg/dL (7-18); eGFR NON AFRICAN AMERICAN 75 mL/min (90-120)
[2020-05-02 07:57] LABS: LYMPHOCYTES 8 % (15-50); MONOCYTES 1 % (2-11); NEUTROPHILS 91 % (40-80); PLATELET ESTIMATE NORMAL
--- NOTE | 2020-05-02 11:18 | NUR ---
NUTRITION F/U PT NOW SEDATED ON VENT. PER MD CONSULT TUBE FEED ORDERS WRITTEN. WILL SPEAK WITH NURSING. CURRENT PULMOCARE GOAL RATE 45 CC/HR. RD FOLLOWING
[2020-05-03] VITALS (24 sets, daily range): BP systolic 94–129; BP diastolic 49–66
[2020-05-03 04:16] LABS: BASOPHILS 0 % (0-2); EOSINOPHILS 0 % (0-7); HEMATOCRIT 33.3 % (36.0-48.0); HEMOGLOBIN 10.2 g/dL (12-16); IMMATURE GRANULOCYTES 0.6 % (0-5); LYMPHOCYTES 2.5 % (15-50); MCH 27.2 pg (26.0-34.0); MCHC 30.6 g/dL (31.0-37.0); MCV 88.8 fL (80.0-100.0); MONOCYTES 4.1 % (2-11); NEUTROPHILS 92.8 % (40-80); PLATELET COUNT 289 10x3/uL (130-400); RBC 3.75 10x6/uL (4.00-5.40); RDW 15.2 % (11.5-14.5); WBC 24.8 10x3/uL (4.8-10.8)
[2020-05-03 04:22] LABS: CALC OSMOLALITY 297 mosm/kg (275-300); CALCIUM 8.3 mg/dL (8.5-10.1); CARBON DIOXIDE 33.5 mmol/L (21.0-32.0); CHLORIDE - SERUM 103 mmol/L (98-107); CREATININE - SERUM 0.7 mg/dL (0.6-1.3); GLUCOSE 237 mg/dL (74-106); MAGNESIUM - SERUM 1.8 mg/dL (1.8-2.4); SODIUM 142 mmol/L (136-145); UREA NITROGEN 33 mg/dL (7-18); eGFR NON AFRICAN AMERICAN 88 mL/min (90-120)
[2020-05-03 04:27] LABS: PHOSPHOROUS 3.1 mg/dL (2.5-4.9); POTASSIUM - SERUM 3.8 mmol/L (3.5-5.1)
--- NOTE | 2020-05-03 18:00 | MORECARE ---
CASE MANAGEMENT DISCHARGE SUMMARY PATIENT: SEE ARENAS UNIT: [id number] ADM DATE: 04/19/20 AGE: 69 : 50 SEX: F ROOM/BED: D.2303 AUTHOR: KERRYDOC PHYSICIAN: REFERRING PHYSICIAN: QUINTIN WERNER MD DATE OF SERVICE: 05/03/20 Discharge Plan Patient Name: SEE ARENAS Facility: [facility]:[place] : 1950 Planned Disposition: Anticipated Discharge Date: Discharge Date: Expected LOS: Initial Reviewer: [email or web address] Initial Review Date: 04/19/2020 Generated: 05/03/20 6:59 pm Comments DCP- Discharge Planning Updated by [email or web address]: Moni Martinez on 05/03/20 4:[address] CM notified that patient's will be coming in on Wednesday and will want to speak with CM regarding final arrangements / Hospice. CM will continue to follow and assist as needed with discharge planning/ needs. DCP- Discharge Planning Updated by [email or web address]: Moni Martinez on 04/23/20 9:[address] Patient Name: SEE ARENAS Admission Status: ER Accout number: [id number] Admission Date: 04-19-2020 : 1950 Admission Diagnosis:SEPSIS, UNSPECIFIED ORGANISM Attending: QUINTIN WERNER Current LOS: 4 Anticipated DC Date: Planned Disposition: Primary Insurance: MEDICARE A & B Discharge Planning Comments: CM met with patient to complete initial dc planning assessment. CM educated patient on the CM role and verbal consent given by patient to complete assessment. Patient lives at home alone. Patient is independent. At discharge patient plans to return home and feels this is a safe discharge. CM discussed availability of home health, rehab services, and medical equipment. Patient stated that she may need BiPAP when discharged. Patient does currently have home/ portable 02 but doesn't know which provider. Patient will have family to transport home. CM will continue to follow and will assist as needed with dc plans/needs. Prosthetics Assistant: Moni Martinez DCPIA - Discharge Planning Initial Assessment Updated by [email or web address]: Moni Martinez on 04/23/20 10:02 pm * Is the patient Alert and Oriented? Yes * How many steps to enter\exit or inside your home? * PCP Aditi * Pharmacy [facility] * Preadmission Environment Home Alone * ADLs Independent * Other Equipment HOME/PORTABLE 02, NEBULIZER, W/C, WALK IN SHOWER, ? WALKER, * List name and contact numbers for known caregivers / representatives who currently or will assist patient after discharge: BERNA ARENAS - MARC - [phone] * Verbal permission to speak to the caregivers and representatives has been obtained from the patient. Yes * Community resources currently utilized None * Additional services required to return to the preadmission environment? No * Can the patient safely return to the preadmission environment? Yes * Has this patient been hospitalized within the prior 30 days at any hospital? No Last DP export: 04/23/20 9:10 pm Patient Name: SEE ARENAS Page [id number] at 1800 All edits/amendments must be made on the electronic document DICTATION DATE: 05/03/201758 DISTILLER: TONA 05/03/201758 RPT#: [id number] DC DATE: STATUS: ADM IN [facility] [address] [place] [address] END OF REPORT
--- NOTE | 2020-05-03 19:20 | NUR ---
RECEIVED CARE OF PT, ASSESSMENT PER FLOWSHEET. PT INTUBATED AND SEDATED ON VENT, O2 SAT AT 77%-MD AWARE, 100% FIO2, PULMOCARE INFUSING AT 15CC/HR TO OGT, PLACEMENT VERIFIED WITH AUSC OF SM AIR BOLUS, HR SR, WILL MONITOR.
[2020-05-04] VITALS (48 sets, daily range): BP systolic 76–139; BP diastolic 43–73
[2020-05-04 04:38] LABS: HEMOGLOBIN 9.1 g/dL (12-16); MCH 27.5 pg (26.0-34.0); MCHC 30.3 g/dL (31.0-37.0); MCV 90.6 fL (80.0-100.0); PLATELET COUNT 277 10x3/uL (130-400); RBC 3.31 10x6/uL (4.00-5.40); RDW 15.4 % (11.5-14.5); WBC 22.7 10x3/uL (4.8-10.8)
[2020-05-04 04:55] LABS: CALCIUM 8.3 mg/dL (8.5-10.1); CARBON DIOXIDE 37.5 mmol/L (21.0-32.0); CHLORIDE - SERUM 107 mmol/L (98-107); CREATININE - SERUM 0.6 mg/dL (0.6-1.3); MAGNESIUM - SERUM 1.8 mg/dL (1.8-2.4); SODIUM 144 mmol/L (136-145); UREA NITROGEN 33 mg/dL (7-18); eGFR NON AFRICAN AMERICAN > 90 mL/min (90-120)
[2020-05-04 04:56] LABS: CALC OSMOLALITY 298 mosm/kg (275-300); GLUCOSE 183 mg/dL (74-106); PHOSPHOROUS 4.1 mg/dL (2.5-4.9); POTASSIUM - SERUM 4.4 mmol/L (3.5-5.1)
[2020-05-04 05:11] LABS: LYMPHOCYTES 3 % (15-50); MONOCYTES 8 % (2-11); NEUTROPHILS 89 % (40-80)
[2020-05-04 05:12] LABS: PLATELET ESTIMATE NORMAL
--- NOTE | 2020-05-04 09:41 | NUR ---
PT OXYGEN SATURATION 66% ON 100% FIO2. DR NAVID CLINTON, STATED TO OBTAIN ABG. ALSO ATTEMPTED TO NOTIFY PTS SON, REACHED VOICEMAIL, VOICEMAIL LEFT. WILL CONTINUE TO ATTEMPT TO CONTACT FAMILY.
--- NOTE | 2020-05-04 09:47 | NUR ---
ABG RESULTS CALLED TO DR SHOEMAKER, STATED INCREASE VENT RATE TO 24.
--- NOTE | 2020-05-04 10:36 | NUR ---
OGT RESIDUAL 10ML.
--- NOTE | 2020-05-04 11:17 | NUR ---
SPOKE WITH PTS SON WHO STATED HE WILL BE HERE AROUND [address] MCGEE ON PT. DR MCGEE AWARE OF THIS.
--- NOTE | 2020-05-04 11:18 | NUR ---
PER DR SHOEMAKER AND RUSSELL KUMAR FOR PT TO GO TO CT NOW. WILL TAKE PT TO CT WHEN READY BY RADIOLOGY AND RESPIRATORY THERAPY.
--- NOTE | 2020-05-04 14:30 | NUR ---
CM MET WITH PATIENT SON REGUARDING PT CONDITION. CM WALKED SON INTO PT ROOM AND EXPLAINED EQUIPMENT AND VS. SON BROUGHT HABBIT SPIRITUAL BEADS. CM PLACED BEADS IN PT HANDS PER SON REQUEST. CM PROVIDED EMOTIONAL SUPPORT, AND ALLOWED SON TO HAVE TIME WITH HIS MOTHER. SON MADE PHONE CALLS TO OTHER FAMILY MEMBERS SO EACH PERSON CAN SPEAK TO THE PATIENT ON SPEAKER. CM WILL CONTINUE TO ASSIST AND HELP NEEDED. GIOVANNI STEPHENS MSN,RN,CM
--- NOTE | 2020-05-04 14:51 | NUR ---
PTS SON HERE TO SPEAK WITH CASE MANAGEMENT AND DR MCGEE. CASE MANAGEMENT SPEAKING WITH PTS SON. DR MCGEE STATED HE IS IN THE HOSPITAL AND WILL BE BY SHORTLY.
--- NOTE | 2020-05-04 15:25 | NUR ---
DR MCGEE HAS SPOKEN WITH PTS SON, QUESTIONS ANSWERED.
--- NOTE | 2020-05-04 18:24 | NUR ---
NO ACUTE DISTRESS NOTED. NO CHANGE. VSS. LEVOPHED TITRATED TO ORDER. WILL CONTINUE PLAN OF CARE.
--- NOTE | 2020-05-04 19:15 | NUR ---
RESUMED CARE OF PT, ASSESSMENT PER FLOWSHEET. HR SR ON CM, LEVOPHED GTT TURNED OFF AT THIS TIME-WILL MONITOR CLOSELY, GTT'S INFUSING PER FLOWSHEET, PARRA CATH PATENT WITH CLOUDY YELLOW URINE IN TUBING, PULMOCARE INFUSING TO OGT-PLACEMENT VERIFIED WITH AUSC OF SM AIR BOLUS.
[2020-05-05] VITALS (23 sets, daily range): BP systolic 88–113; BP diastolic 44–57; Ht 172.7 cm; Wt 94.7 kg
--- NOTE | 2020-05-05 09:32 | NUR ---
5ML RESIDUAL NOTED TO OGT. PT LYING IN BED ON VENT AT THIS TIME. NO ACUTE DISTRESS NOTED. BED ALARM ON. TURNED Q2H, ORAL CARE PROVIDED Q2H. OXYGEN SATURATION TRENDING IN THE 80S, PHYSICIANS ARE AWARE. WILL CONTINUE PLAN OF CARE.
[2020-05-05 11:42] LABS: INR 0.97 (0.85-1.17); PROTIME 12.8 SECONDS (11.6-15.0)
--- NOTE | 2020-05-05 14:27 | NUR ---
NO ACUTE DISTRESS NOTED. VSS. NO CHANGE. PT TURNED Q2H. ORAL CARE PROVIDED Q2H. WILL CONTINUE PLAN OF CARE.
--- NOTE | 2020-05-05 20:10 | NUR ---
PT SON CALLED, PASSWORD PROVIDED, UPDATE GIVEN AND ALL QUESTIONS ANSWERED.
--- NOTE | 2020-05-05 20:31 | NUR ---
PT DAUGHTER CALLED, PASSWORD PROVIDED, UPDATE GIVEN AND ALL QUESTIONS ANSWERED.
[2020-05-06] VITALS (57 sets, daily range): BP systolic 67–153; BP diastolic 33–75
[2020-05-06 10:15] LABS: HEMOGLOBIN 10.1 g/dL (12-16); MCH 27.5 pg (26.0-34.0); MCHC 29.7 g/dL (31.0-37.0); MCV 92.6 fL (80.0-100.0); PLATELET COUNT 301 10x3/uL (130-400); RBC 3.67 10x6/uL (4.00-5.40); RDW 15.7 % (11.5-14.5); WBC 24.9 10x3/uL (4.8-10.8)
[2020-05-06 10:39] LABS: ALKALINE PHOSPHATASE 45 U/L (30-120); ALT (SGPT) 19 U/L (10-68); BILIRUBIN - TOTAL 0.46 mg/dL (0.2-1.3); CALC OSMOLALITY 292 mosm/kg (275-300); CARBON DIOXIDE 35.2 mmol/L (21.0-32.0); CHLORIDE - SERUM 99 mmol/L (98-107); CREATININE - SERUM 0.8 mg/dL (0.6-1.3); GLUCOSE 256 mg/dL (74-106); POTASSIUM - SERUM 5.8 mmol/L (3.5-5.1); PROTEIN - SERUM 5.7 g/dL (6.4-8.2); SODIUM 136 mmol/L (136-145); UREA NITROGEN 46 mg/dL (7-18); eGFR NON AFRICAN AMERICAN 75 mL/min (90-120)
--- NOTE | 2020-05-06 10:52 | NUR ---
Nutrition follow-up: Pt now intubated, sedated with propofol @ 25.8 ml/hr Pulmocare infusing @ 35 ml/hr via OGT 35 ml H2O flush q 2 hours Labs reviewed Levophed in use RDN following.
--- NOTE | 2020-05-06 11:04 | NUR ---
SPOKE WITH A FAMILY MEMBER (STEP SISTER). SHE PROVIDED THE PASSWORD AND UPDATE GIVEN.
--- NOTE | 2020-05-06 12:06 | NUR ---
INCREASED VT TO 450
--- NOTE | 2020-05-06 12:07 | NUR ---
PT BECOMING HYPOSENSIVE AND O2 SAT REMAINS 70'S. LEVOPOHED TITRATED FOR BP. SON CALLED REGARDING CODE STATUS AND DR DUBOSE SPOKE WITH THE SON (DARLENE). PT REMAINS A FULL CODE.
--- NOTE | 2020-05-06 12:26 | NUR ---
DR GARCIA NOTIFIED ABOUT FSBS. SEE MAR.
[2020-05-06 13:05] LABS: LYMPHOCYTES 12 % (15-50); MONOCYTES 6 % (2-11); NEUTROPHILS 82 % (40-80); PLATELET ESTIMATE NORMAL
--- NOTE | 2020-05-06 17:00 | NUR ---
PT RECEIVED A FULL CHD BATH AND LINEN CHANGE. BUTTOCKS DRESSING REMOVED. ST 2 ULCER NOTED. DRESSING APPLIED. CALL LIGHT IN REACH. WILL CONT POC.
--- NOTE | 2020-05-06 18:38 | NUR ---
FAMILY CALLED AND PROVIDED PASSWORD. UPDATE GIVEN.
[2020-05-07] VITALS: BP 81/46
[2020-05-07 00:15] VITALS: BP 83/46
[2020-05-07 00:30] VITALS: BP 79/46
[2020-05-07 00:45] VITALS: BP 79/43
--- NOTE | 2020-05-07 02:10 | NUR ---
SPOKE WITH PT'S SON DARLENE, MOLLY FRANCOIS IN PROGRESS, ATTEMPTING TO RESUCCITATE, STATES HE WANTS HER TO BE ABLE TO COME HOME, INFORMED HIM WE WOULD USE ALL MEASURES TO SAVE HER AND WOULD CALL HIM BACK
--- NOTE | 2020-05-07 02:30 | NUR ---
CARLEY NICHOLAS SPOKE WITH DARLENE PT'S SON, INFORMED HIM THAT PT HAD
--- NOTE | 2020-05-07 02:45 | NUR ---
SPOKE WITH DARLENE CHAPMAN'S SON, HE HAS DECIDED ON [facility] [place], WILL HAVE PT SENT TO THERE AND GIVE THEM HIS CONTACT INFO SO THEY CAN CALL HIM IN AM, SON AURORASTEF BUT AGREED WITH PLAN
--- NOTE | 2020-05-07 02:55 | NUR ---
CALLED [facility], INFORMED OF PT , SPOKE WITH FALLON HARTMANN, COODINATOR WILL CALL BACK
--- NOTE | 2020-05-07 07:00 | NUR ---
REPORT RECEVIED. WAITING FOR HOME.
--- NOTE | 2020-05-07 07:33 | NUR ---
SPOKE WITH [facility]. RULE OUT DONATION DUE TO SEPSIS DX.
--- NOTE | 2020-05-07 07:55 | NUR ---
HOME SIGNED PAPER WORK, TOOK ALL THE PT BELONINGS AND TOOK THE BODY.
--- NOTE | 2020-05-07 11:02 | MORECARE ---
CASE MANAGEMENT DISCHARGE SUMMARY PATIENT: SEE ARENAS UNIT: [id number] ADM DATE: 04/19/20 AGE: 69 : 50 SEX: F ROOM/BED: D.2303 AUTHOR: KERRYDOC PHYSICIAN: REFERRING PHYSICIAN: QUINTIN WERNER MD DATE OF SERVICE: 05/07/20 Discharge Plan Patient Name: SEE ARENAS Facility: [facility]:[place] : 1950 Planned Disposition: Anticipated Discharge Date: Discharge Date: 05/07/2020 Expected LOS: Initial Reviewer: [email or web address] Initial Review Date: 04/19/2020 Generated: 05/07/20 12:01 pm Comments DCP- Discharge Planning Updated by [email or web address]: Moni Martinez on 05/03/20 4:[address] CM notified that patient's will be coming in on Wednesday and will want to speak with CM regarding final arrangements / Hospice. CM will continue to follow and assist as needed with discharge planning/ needs. DCP- Discharge Planning Updated by [email or web address]: Moni Martinez on 04/23/20 9:[address] Patient Name: SEE ARENAS Admission Status: ER Accout number: [id number] Admission Date: 04-19-2020 : 1950 Admission Diagnosis:SEPSIS, UNSPECIFIED ORGANISM Attending: QUINTIN WERNER Current LOS: 4 Anticipated DC Date: Planned Disposition: Primary Insurance: MEDICARE A & B Discharge Planning Comments: CM met with patient to complete initial dc planning assessment. CM educated patient on the CM role and verbal consent given by patient to complete assessment. Patient lives at home alone. Patient is independent. At discharge patient plans to return home and feels this is a safe discharge. CM discussed availability of home health, rehab services, and medical equipment. Patient stated that she may need BiPAP when discharged. Patient does currently have home/ portable 02 but doesn't know which provider. Patient will have family to transport home. CM will continue to follow and will assist as needed with dc plans/needs. Taping Supervisor: Moni Martinez DCPIA - Discharge Planning Initial Assessment Updated by [email or web address]: Moni Martinez on 04/23/20 10:02 pm * Is the patient Alert and Oriented? Yes * How many steps to enter\exit or inside your home? * PCP Aditi * Pharmacy [facility] * Preadmission Environment Home Alone * ADLs Independent * Other Equipment HOME/PORTABLE 02, NEBULIZER, W/C, WALK IN SHOWER, ? WALKER, * List name and contact numbers for known caregivers / representatives who currently or will assist patient after discharge: BERNA ARENAS - MARC - [phone] * Verbal permission to speak to the caregivers and representatives has been obtained from the patient. Yes * Community resources currently utilized None * Additional services required to return to the preadmission environment? No * Can the patient safely return to the preadmission environment? Yes * Has this patient been hospitalized within the prior 30 days at any hospital? No Last DP export: 05/03/20 5:00 p Patient Name: SEE ARENAS Page 99991 at 1102 All edits/amendments must be made on the electronic document DICTATION DATE: 05/07/20 1101 FUEL CELL TEST ENGINEER: TONA 05/07/20 1101 RPT#: [id number] DC DATE:05/07/20 STATUS: DIS IN [facility] [address] [place] [address] END OF REPORT
[2020-05-08 14:45] LABS: PATH REVIEW PERIPHERAL SMEAR REVIEWED
[2020-05-08 16:09] LABS: HGB - A 97.9 % (96.4-98.8); HGB - A2 2.1 % (1.8-3.2); HGB - INTERPRETATION Note: (()); HGB - SOLUBILITY Negative (Negative)
== END 2020-05-07 08:00 | DRG 870 ==
LOC: D.ER 15:31 → D.ICU 17:08
PROVIDERS: Emergency Medicine; Family Medicine; Internal Medicine Hematology & Oncology; Internal Medicine Pulmonary Disease; ADMIT Family Medicine; ATTEND Family Medicine
PROC: 5A09357 Assistance with Respiratory Ventilation, Less than 24 Consecutive Hours, Continuous Positive Airway Pressure (ICD-10-PCS; principal; 2020-04-20)
PROC: 5A1955Z Respiratory Ventilation, Greater than 96 Consecutive Hours (ICD-10-PCS; 2020-05-01)
PROC: 0BH18EZ Insertion of Endotracheal Airway into Trachea, Via Natural or Artificial Opening Endoscopic (ICD-10-PCS; 2020-05-01)
DX: A41.9 Sepsis, unspecified organism (principal); J96.02 Acute respiratory failure with hypercapnia; J96.01 Acute respiratory failure with hypoxia; J18.9 Pneumonia, unspecified organism; N17.9 Acute kidney failure, unspecified; J98.11 Atelectasis; I11.0 Hypertensive heart disease with heart failure; I50.9 Heart failure, unspecified; E78.5 Hyperlipidemia, unspecified; J44.9 Chronic obstructive pulmonary disease, unspecified; J45.909 Unspecified asthma, uncomplicated; E03.9 Hypothyroidism, unspecified; K21.9 Gastro-esophageal reflux disease without esophagitis; E11.9 Type 2 diabetes mellitus without complications; E66.9 Obesity, unspecified; Z68.33 Body mass index [BMI] 33.0-33.9, adult; R16.0 Hepatomegaly, not elsewhere classified; I25.10 Atherosclerotic heart disease of native coronary artery without angina pectoris; I95.9 Hypotension, unspecified; R53.81 Other malaise; D17.71 Benign lipomatous neoplasm of kidney